=== PATIENT | female | born 1965 | race Caucasian/White ===

== ENCOUNTER 2017-08-20 16:30 | Observation (INO) ==
--- NOTE | 2017-08-20 16:58 | Emergency Department Note ---
Disposition Clinical Impression: Pre-syncope Chest pain Qualifiers: Chest pain type: unspecified Qualified Code(s): R07.9 - Chest pain, unspecified Disposition: Admitted As Inpatient Condition: Good General Adult HPI - General Chief complaint: ED Extremity Injury, Lower Stated complaint: cp x 4 days from urgent care Time Seen by Provider: 08/20/17 16:36 Source: patient Limitations: no limitations Nursing Notes Reviewed: Yes Vital Signs Reviewed: Yes - History of Present Illness HPI Narrative: 52-year-old female who reports for the last 3 weeks she has had intermittent chest pain with presyncope. She does not have any history of this. She has no past medical history. She also reports when she went to an urgent care to get her leg looked at after she fell off a horse she was told she had high blood pressure. She does not take any current medications. She does report a family history of cardiac disease at her age (her father). She states that she gets a few episodes of substernal chest pressure and pain with symptoms of presyncope happening a few times a day the last few weeks. She does not have any exacerbating factors. She is currently pain-free Pain Scale: 0 Improves with: nothing Worsens with: nothing Associated symptoms: Reports: denies other symptoms Treatments Prior to Arrival: none - Related Data Home Medications Medication Instructions Recorded Confirmed No Known Home Drugs 08/20/17 08/20/17 Allergies Allergy/AdvReac Type Severity Reaction Status Date / Time No Known Allergies Allergy Verified 08/20/17 16:39 All systems ED: reviewed and negative except as stated. Constitutional: Denies: fever ENT ED: Denies: throat pain Cardiovascular: Reports: chest pain Respiratory: Denies: wheezes Gastrointestinal: Denies: abdominal pain, nausea, vomiting, diarrhea Genitourinary: Denies: dysuria Musculoskeletal: Denies: back pain Integumentary: Denies: rash Past Medical History - Past Medical History Medical history: Reports: no medical history Psychiatric history: Reports: no psych history - Social History Smoking Status: Current every day smoker Alcohol use: Reports: occasionally Drug use: Reports: none Physical Exam - General Limitations: no limitations General appearance: alert, in no apparent distress - Head Head exam: atraumatic - Eye Eye exam: Present: normal appearance, PERRL - ENT ENT exam: normal exam, normal oropharynx - Neck Neck exam: Present: normal inspection - Chest Chest inspection: Present: normal inspection - Respiratory Respiratory exam: Present: normal lung sounds bilaterally. Absent: respiratory distress - Cardiovascular Cardiovascular exam: Present: regular rate, normal rhythm - Abdominal Exam Abdominal exam: Present: soft, Non-Tender - Extremities Exam Extremities exam: Present: normal inspection - Neurological Exam Neurological exam: Present: alert, oriented X3 - Skin Skin exam: Present: warm, dry Course Course Narrative: She is able to ambulate without difficulty. She does have hypertension. EKG shows normal sinus rhythm without ST deviation. No significant T-wave inversions. Will do chest pain workup with likely admission for CP rule out due to CP with pre-syncope. Suzi accepts Vital Signs Temperature 98.4 F 08/20/17 16:34 Pulse Rate 66 08/20/17 16:34 Respiratory Rate 16 08/20/17 16:34 Blood Pressure 179/94 08/20/17 16:34 O2 Sat by Pulse Oximetry 98 08/20/17 16:34 Temperature 98.4 F 08/20/17 16:34 Pulse Rate 52 08/20/17 18:47 Respiratory Rate 16 08/20/17 18:47 Blood Pressure 153/79 08/20/17 18:47 O2 Sat by Pulse Oximetry 94 08/20/17 18:47 Oxygen Delivery Oxygen Delivery Room Air Medical Decision Making - Medical Records Medical records reviewed: Yes I reviewed the patient's medical records. - Lab Data Lab results reviewed: Yes I reviewed the patient's lab results. Result diagrams: 08/20/17 17:09 08/20/17 17:09 Lab Results 08/20/17 08/20/17 08/20/17 Range/Units 17:09 17:09 17:09 WBC 11.3 H (4.3-11.1) K/mcL RBC 4.11 (3.82-4.97) M/mcL Hgb 13.0 (11.5-15.4) g/dL Hct 38.1 (35.3-44.9) % MCV 92.7 (83.0-100.0) fL MCH 31.6 (28.0-33.3) pg MCHC 34.1 (31.6-35.5) g/dL RDW 12.9 (11.5-14.5) % Plt Count 174 (140-400) K/mcL MPV 12.0 (9.4-12.4) fL Immature Gran % 0.3 (0-4) % Seg Neutrophils % 66.2 % Lymphocytes % 28.2 % Monocytes % 4.2 % Eosinophils % 0.8 % Basophils % 0.3 % Neutrophils # 7.5 (1.6-8.9) K/mcL Lymphocytes # 3.2 (0.6-4.6) K/mcL Monocytes # 0.5 (0.0-1.3) K/mcL Eosinophils # 0.1 (0.0-0.6) K/mcL Basophils # 0.0 (0.0-0.2) K/mcL Immature Plt Fraction 7.5 H (1.1-6.1) % Sodium 141 (136-145) mEq/L Potassium 3.6 (3.5-5.1) mEq/L Chloride 111 H (98-107) mEq/L Carbon Dioxide 24 (23-29) mEq/L BUN 10 (6-20) mg/dL Creatinine 0.60 (0.60-1.20) mg/dL Est GFR ( Amer) > 60 (> 60) Est GFR (Non-Af Amer) > 60 (> 60) BUN/Creatinine Ratio 17 (6-26) Glucose 92 (70-105) mg/dL Calculated Osmolality 291 (280-300) Calcium 9.0 (8.6-10.3) mg/dL Troponin I < 0.03 (< 0.04) ng/mL - Radiology Data Radiology results reviewed: Yes I reviewed the patient's radiology results. - EKG Data EKG #1 EKG attestation: Yes I reviewed and interpreted this EKG. EKG shows normal: sinus rhythm Rate: normal Rhythm: NSR [place]/QRS: normal When compared to previous EKG there are: previous EKG unavailable Interpretation: nonspecific ST-T wave changes Attestation Statement - Attestation Attestation: I, Mauricio Lu, examined this patient and my medical decision-making was reviewed with the MOTOR[employer]AT [employer]CH[employer]IC INBOARD/OUTBOARD/PA/Advanced Practice Nurse/Resident Physician. I agree with the documented findings, disposition and treatment plan as described except to the extent set forth below. 52-year-old female presents to the emergency department for concerns of elevated blood pressure and intermittent chest pain over the past few weeks. Patient also states that she has been presyncopal with her symptoms. No history of cardiac disease in the past. No recent fevers, chills, abdominal pain, diarrhea. Initial troponin negative. EKG does not show evidence of acute STEMI. Patient will be admitted to the hospital for further care and evaluation of her chest pain.
[2017-08-20 17:19] LABS: Basophils % 0.3 %; Eosinophils # 0.1 K/mcL (0.0-0.6); Eosinophils % 0.8 %; Hematocrit 38.1 % (35.3-44.9); Immature Granulocytes % 0.3 % (0-4); Immature Platelets 7.5 % (1.1-6.1); Lymphocytes # 3.2 K/mcL (0.6-4.6); Lymphocytes % 28.2 %; Mean Corpuscular HGB Conc 34.1 g/dL (31.6-35.5); Mean Corpuscular Hemoglobin 31.6 pg (28.0-33.3); Mean Corpuscular Volume 92.7 fL (83.0-100.0); Monocytes # 0.5 K/mcL (0.0-1.3); Monocytes % 4.2 %; Neutrophils # 7.5 K/mcL (1.6-8.9); Platelet Count 174 K/mcL (140-400); Red Blood Count 4.11 M/mcL (3.82-4.97); Red Cell Distribution Width 12.9 % (11.5-14.5); Segmented Neutrophils % 66.2 %
[2017-08-20 17:32] LABS: BUN/Creatinine Ratio 17 (6-26); Blood Urea Nitrogen 10 mg/dL (6-20); Carbon Dioxide 24 mEq/L (23-29); Chloride 111 mEq/L (98-107); Glucose 92 mg/dL (70-105); Osmolality,Calculated 291 (280-300); Potassium 3.6 mEq/L (3.5-5.1); Sodium 141 mEq/L (136-145); eGFR For African Americans > 60 (> 60); eGFR For Non-African Americans > 60 (> 60)
[2017-08-20] MEDS ORDERED: Acetaminophen 325 MG TABLET PO PRN (18:48)
[2017-08-20] MEDS ORDERED: Naloxone 0.4 MG/ML INJ IVP PRN (18:48)
[2017-08-20] MEDS ORDERED: Ondansetron 4 MG/2 ML VIAL IVP PRN (18:48)
--- NOTE | 2017-08-20 19:25 | Internal Med History&Physical ---
<Rita Cohn S - Last Filed: 08/20/17 19:16> Date of Encounter: 08/20/17 Time of Encounter: 19:16 Assessment and Plan (1) Hypertensive urgency Current visit: Yes Status: Acute 52-year-old female with no past medical history of hypertension found to have a blood pressure of 207/68 at the urgent care. Evaluation at the ER pressure 140/ 74 Start amlodipine 10 mg by mouth daily Hydralazine 10 mg when necessary for systolic blood pressure greater than 165 diastolic blood pressure greater than 100 Arrange follow-up with PCP as outpatient (2) Chest pain Current visit: Yes Status: Acute Intermittent chest pain 2-3 episodes per week over the last 3-4 weeks Describes as sharp sudden sternal nonradiating associated with feeling hot and sweaty, shortness of breath with foggy/fuzzy vision and feeling of losing her balance. 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 Nothing by mouth after midnight Cardiac diet Lipid panel in a.m. 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 Short is a 52 year old female who had presented to an urgent care with right lower extremity pain after falling off her horse. While she was there she was found to have a blood pressure of 207/68 and they advised her to come to the ER for evaluation. Here she explained that she has been having a sudden sharp midsternal nonradiating chest pain associated with shortness of breath feeling hot and sweaty and lightheaded with dry mouth and fuzzy/foggy vision. She also states that she gets so dizzy that she will lose her balance. She denies nausea, emesis, headache, muscle weakness, recent illness, fever or chills, changes in bowel or bladder, or syncope. She said these episodes of that happening over the last month 2-3 times a week. Her father had an [place] with quadruple bypass at age 42. She is a tobacco smoker utilizing 6-10 cigarettes a day. 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 She states when she walks up a slope to go to the barn she will have palpitations on exertion. She is on no home medications, does not have a PCP, has had no recent lab workup. He is sitting up in a stretcher in the ER and no distress at this time. She is having no chest pain. Her blood pressure is currently 140/74 with a heart rate in the 50s, EKG sinus rhythm. Discussed the plan of care and she is aware of plan for admission with further testing. Past Med Surg Social Fam HX - Past Medical History Source: patient Medical history: no medical history Psychiatric history: no psych history - Past Surgical History Surgical History: no surgical history - Social History Smoking Status: Current every day smoker Smokeless Tobacco Status: No Alcohol use: occasionally Drug use: none Occupational status: employed Current living situation: Home - Independent Activity Level: Independent ambulation - Family History Father Living Status: Still Living Hx Family Cardiac Disorders: Yes (mi and 4 bypass at age 42) - Additional Family History Additional family history: paternal fmily hx of DM, CAD, liver disease. maternal family hx of cancers Internal Medicine - H&P: Meds No Known Home Drugs 08/20/17 [History] 3 Allergy/AdvReac Type Severity Reaction Status Date / Time No Known Allergies Allergy Verified 08/20/17 16:39 All Systems PM: A 10-system review of systems was performed and is negative for pertinent findings except as documented above in the HPI. - Constitutional Constitutional: as per HPI, no chills, no fever(s), no night sweats - EENT Eyes: blurry vision, no change in vision, no discharge, no pain, no photophobia Ears: no ear discharge, no ear pain, no tinnitus Nose, mouth and throat: dry mouth, no dysphagia, no nasal discharge, no neck pain, no sore throat - Cardiovascular Cardiovascular ROS IM: chest pain, diaphoresis, dyspnea, lightheadedness, palpitations, no syncope - Respiratory Respiratory: no cough, no dyspnea, no wheezing, no excessive phlegm production - Gastrointestinal Gastrointestinal: no abdominal pain, no diarrhea, no hematemesis, no hematochezia, no melena, no nausea, no vomiting - Genitourinary Genitourinary: no change in urinary stream, no dysuria, no flank pain, no hematuria - Musculoskeletal Musculoskeletal ROS IM: no numbness, no tingling - Integumentary Integumentary IM: no rash, no unusual bruising - Neurological Neurological ROS: no confusion, no convulsions, no focal weakness, no numbness, no tingling, no tremor(s) - Hematologic/Lymphatic Hematologic/Lymphatic: no easy bruising - Constitutional Vitals: Temp Pulse Resp BP Pulse Ox 98.4 F 52 16 153/79 94 08/20/17 16:34 08/20/17 18:47 08/20/17 18:47 08/20/17 18:47 08/20/17 18:47 General appearance: Present: A&O X 3, pleasant, no acute distress, answers questions appropriately - Head Head exam: Present: atraumatic, normocephalic - Eye Eye exam: Present: conjuntiva pink, sclera anicteric - Neck Neck exam general surgery: Present: supple, trachea midline. Absent: lymphadenopathy - Respiratory Respiratory exam: Present: CTAB. Absent: accessory muscle use, chest wall tenderness, rales, rhonchi, wheezes - Cardiovascular Cardiovascular exam: Present: bradycardia, RRR, +S1, +S2. Absent: diastolic murmur, gallop, rubs, systolic murmur - GI/Abdominal GI/Abdominal exam: Present: normal bowel sounds, soft, no peritoneal signs. Absent: distended, tenderness - Extremities Exam Extremities exam: Present: warm, radial pulses palpable and symmetrical. Absent : calf tenderness, cyanotic, pedal edema - Neurological Exam Neurological exam: Present: CN II-XII intact, oriented X3, no focal deficits. Absent: pronater drift, facial droop, speech deficit - Skin Skin exam: Present: dry, intact Internal Med - H&P Results - Labs CBC & Chem 7: 08/20/17 17:09 08/20/17 17:09 <Jeremiah Slaughter - Last Filed: 08/20/17 19:57> Date of Encounter: 08/20/17 Internal Medicine - H&P: HPI History of present illness: Ms. Short is a 52 year old female All Systems PM: A 10-system review of systems was performed and is negative for pertinent findings except as documented above in the HPI. - Constitutional Vitals: Temp Pulse Resp BP Pulse Ox 98.2 F 50 16 135/72 97 08/20/17 19:26 08/20/17 19:26 08/20/17 19:26 08/20/17 19:42 08/20/17 19:26 Internal Med - H&P Results - Labs CBC & Chem 7: 08/20/17 17:09 08/20/17 17:09 - Attending Attestation I have personally performed a face to face evaluation on this patient. I have reviewed and agree with the care plan. History and Exam by me shows: CP for a few weeks. Couple times a week. Sternal in nature. Comes and goes. lasting 4-5 mins typically, except couple of times where it could last up to 20 mins. Associated with pre-syncope/blurry vision. Improve with rest. EKG reviewed with rate 51, sinus [place] Family hx of cardiac illness General - AAO x 3 Psych - Appropriate affect/speech. No agitation Eyes - SAMMY. Eye lids intact. No scleral icterus Heart - Sinus. RRR. S1 and S2 present. No added HS/murmurs appreciated. No elevated JVD appreciated. Lung - Adequate air entry b/l, No crackles/wheezes appreciated GI - Soft, non-tender. No hepatosplenomegaly/ascites. BS+ - No CVA/suprapubic tenderness or palpable bladder distension Skin - Intact. No rash/petechiae/ecchymosis. Warm extremities MSK - Joints with normal ROM. No joint swellings Impression Cardiac CP r/o Pre-syncope Uncontrolled HTN, HTN urgency - start anti-HTN - TTE, stress, tele, trend trop - CXR clear
[2017-08-20] MEDS: amLODIPine 5 MG TABLET PO SCH (20:56)
[2017-08-20 20:57] LABS: Protein/Creatinine Ratio,Urine 0.07 mg/mg (0.00-0.20); Sodium, Urine 120.4 mEq/L
[2017-08-21 05:00] LABS: Basophils % 0.3 %; Eosinophils # 0.2 K/mcL (0.0-0.6); Eosinophils % 1.8 %; Hematocrit 37.5 % (35.3-44.9); Hemoglobin 12.6 g/dL (11.5-15.4); Immature Granulocytes % 0.1 % (0-4); Lymphocytes # 3.8 K/mcL (0.6-4.6); Lymphocytes % 44.3 %; Mean Corpuscular HGB Conc 33.6 g/dL (31.6-35.5); Mean Corpuscular Hemoglobin 31.1 pg (28.0-33.3); Mean Corpuscular Volume 92.6 fL (83.0-100.0); Mean Platelet Volume 12.4 fL (9.4-12.4); Monocytes # 0.5 K/mcL (0.0-1.3); Neutrophils # 4.1 K/mcL (1.6-8.9); Platelet Count 168 K/mcL (140-400); Red Blood Count 4.05 M/mcL (3.82-4.97); Red Cell Distribution Width 13.1 % (11.5-14.5); Segmented Neutrophils % 47.5 %
[2017-08-21 05:18] LABS: INR 1.1; Prothrombin Time 11.6 Seconds (9.4-12.1)
[2017-08-21 05:20] LABS: Activated Partial Thrombo Time 28.4 Seconds (26.0-36.0)
[2017-08-21 05:21] LABS: BUN/Creatinine Ratio 21 (6-26); Blood Urea Nitrogen 14 mg/dL (6-20); Calcium 8.8 mg/dL (8.6-10.3); Carbon Dioxide 27 mEq/L (23-29); Chloride 111 mEq/L (98-107); Chol/HDL Ratio 2.9 (0-4.9); Cholesterol 187 mg/dL (< 200); Glucose 86 mg/dL (70-105); HDL Cholesterol 64 mg/dL (40-59); LDL Cholesterol,Calculated 109 mg/dL (0-99); Magnesium 1.9 mg/dL (1.6-2.6); Osmolality,Calculated 298 (280-300); Phosphorous 4.7 mg/dL (2.7-4.5); Potassium 3.6 mEq/L (3.5-5.1); Sodium 144 mEq/L (136-145); Triglycerides 70 mg/dL (< 150); eGFR For African Americans > 60 (> 60); eGFR For Non-African Americans > 60 (> 60)
[2017-08-21] MEDS: amLODIPine 5 MG TABLET PO SCH (11:21)
--- NOTE | 2017-08-21 11:45 | Discharge Summary ---
Date of Encounter: 08/21/17 Time of Encounter: 11:45 - Discharge Diagnosis (1) Chest pain Priority: Primary Status: Resolved Qualifiers: Chest pain type: precordial pain Qualified Code(s): R07.2 - Precordial pain (2) Pre-syncope Priority: Secondary Status: Acute (3) Hypertensive urgency Priority: Secondary Status: Acute (4) Sinus bradycardia Priority: Secondary Status: Acute (5) Tobacco use Priority: Secondary Status: Acute - Discharge Medications Prescriptions: Lisinopril [Zestril] 10 mg PO DAILY #30 tablet Home Medications: Lisinopril [Zestril] 10 mg PO DAILY #30 tablet 08/21/17 [Rx] Allergies/Adverse Reactions: 3 Allergy/AdvReac Type Severity Reaction Status Date / Time No Known Allergies Allergy Verified 08/20/17 16:39 Procedures/tests Complete & Pending: Procedures Performed prior 72 hours Category Date Time Status EKG [ECG 12 lead ECG] [ECG] AM 0600 Y 08/21/17 06:00 Ordered EV echocardiogram Routine Y 08/21/17 19:07 Completed SP exercise stress ECG Routine Y 08/20/17 19:08 Completed Date of admission: 08/20/17 18:30 Primary care physician: PCP NONE Discharging clinician: Shayla Medina Anticipated date of discharge: 08/21/17 - Patient Status Disposition: Home, Self-Care Condition: Good Functional capacity at discharge: independent ambulation Overall status at discharge: patient is progressing back to baseline - Discharge Instructions Instructions: Chest Pain (GEN), Hypertension (GEN) Follow Up With: NONE,PCP [Primary Care Provider] - (F/U with PCP or call [phone] for appointment in 1 week) Additional Instructions: F/u with cardiology in 1 week [phone] - Diet and Activity Activity: increase activity as tolerated Diet: low fat, low cholesterol, low salt diet Hospital course: Ms. Short is a 52 year old female patient who was hospitalized here with complaints of chest pain. She had initially come to the urgent care Center after a fall from horse. She described presyncopal symptoms prior to this episode. She developed pain in her right thigh as a result of a fall. X-ray of the right femur did not show any acute fracture. Patient underwent cardiac stress test this morning on the treadmill. The EKG part of the stress test was unable to read due to presence of artifact but patient did not have any chest pain symptoms during the cardiac stress test. She does not have a history of coronary artery disease. She had significantly elevated blood pressure on arrival here. This was treated and her blood pressure has now improved. She will be discharged home on lisinopril to continue treatment for hypertension. Patient also has been intermittently bradycardic without any symptoms with heart rate going down to the 40s. I recommend she follow up with cardiology for this and we will have a Holter monitor set up for her at discharge. 2-D echocardiogram done here today showed EF of 60% with no wall motion abnormalities. - Time Spent with Patient Total time spent providing and/or coordinating discharge services: Less than 30 minutes (25 min) - Constitutional Vitals: Temp Pulse Resp BP Pulse Ox 98.2 F 47 16 114/67 97 08/21/17 07:14 08/21/17 07:14 08/21/17 07:14 08/21/17 07:14 08/21/17 07:14 General appearance: Present: A&O X 3, pleasant, no acute distress, answers questions appropriately - Respiratory Respiratory exam: Present: CTAB. Absent: accessory muscle use, rales, rhonchi, wheezes - Cardiovascular Cardiovascular exam: Present: bradycardia, RRR, +S1, +S2. Absent: diastolic murmur, gallop, rubs, systolic murmur - GI/Abdominal GI/Abdominal exam: Present: normal bowel sounds, soft, no peritoneal signs. Absent: distended, tenderness
[2017-08-21 11:46] VITALS: BP 112/71
--- NOTE | 2017-08-21 13:57 | Electrocardiograph Report ---
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
[2017-08-21 14:46] LABS: Thyroid Stimulating Hormone 2.745 mcIU/mL (0.340-5.600)
== END 2017-08-21 14:43 | disposition home or self-care (01) ==
LOC: EMEROO 16:30 → 3BNU 16:30 → SUATTDRO 18:30 → 3BNU 18:54
PROVIDERS: ADMIT Registered Nurse; ATTEND Internal Medicine